=== PATIENT | male | born 2000 | race Caucasian/White ===

== ENCOUNTER → 2020-03-22 | Outpatient (CLI) | payer OTHER ==
[~2020-03-22] MED LIST: ADVIL; CEPH500 PO; ERYT.5TO OS; SULTRIEL PO; SULTRISS PO; TRIA80TC TOP
== END ==
LOC: PLD 17:08 → LAB SHORT 17:08
DX: J02.9 Acute pharyngitis, unspecified (principal)
CPT/HCPCS: 87081

== ENCOUNTER 2023-03-11 07:25 | Emergency (ER) | payer OTHER ==
[~2023-03-11] VITALS: Ht 182.9 cm; Wt 75.0 kg
[2023-03-11 07:37] VITALS: BP 137/90
[2023-03-11] MEDS ORDERED: Ventolin/Prove6.7 GM (07:43)
[2023-03-11] MEDS ORDERED: FLUTICASONE P10.6 GM (07:43)
[2023-03-11] MEDS ORDERED: FAMO20 (07:43)
== END 2023-03-11 10:03 | disposition home or self-care (01) ==
LOC: ER 07:25
DX: M25.522 Pain in left elbow (principal); Z91.018 Allergy to other foods; Z79.899 Other long term (current) drug therapy; K21.9 Gastro-esophageal reflux disease without esophagitis
CPT/HCPCS: 73080; 99283-25

== ENCOUNTER → 2024-02-14 | Outpatient (CLI) | payer OTHER ==
[~2024-02-14] MED LIST changes: +FAMO20; +FLUTICASONE P10.6 GM; +Ventolin/Prove6.7 GM
[2024-02-14 15:33] LABS: Alanine Aminotransfer (ALT/SGP 49 U/L (12-78); Albumin, Blood 4.2 g/dL (3.4-5.0); Albumin/Globulin Ratio 1.3 (0.8-1.8); Alk Phos 62 U/L (50-136); Anion Gap 8 mmol/L (3-11); Aspartate Aminotrans (AST/SGOT 34 U/L (12-37); Bilirubin, Total 0.6 mg/dL (0.1-1.0); Blood Urea Nitrogen 11 mg/dL (8-24); Bun/Creatinine Ratio 10.4 (12.0-20.0); CHOL/HDL RATIO 2.6; CO2, Blood 30 mmol/L (21-32); Calcium, Blood 9.4 mg/dL (8.5-10.1); Chloride, Blood 104 mmol/L (98-108); Cholesterol 187 mg/dL (50-200); Creatinine, Blood 1.06 mg/dL (0.60-1.20); Globulin, Blood 3.3 g/dL (2.2-4.0); Glomerular Filtration Rate 101 (60-); Glucose, Blood 98 mg/dL (70-99); HDL Cholesterol 73 mg/dL (>39); LDL/HDL RATIO 1.3; Low Density Lipoprotein Chol 96 mg/dL (0-110); Potassium, Blood 3.5 mmol/L (3.5-5.5); Sodium, Blood 138 mmol/L (136-145); Total Protein, Blood 7.5 g/dL (6.4-8.2); Triglycerides 90 mg/dL (30-140); Very Low Density Lipoprot Chol 18 mg/dL (6-28)
== END ==
LOC: LAB 12:00 → LAB SHORT 12:00
PROVIDERS: Physician Assistant
DX: Z51.81 Encounter for therapeutic drug level monitoring (principal); Z79.899 Other long term (current) drug therapy
CPT/HCPCS: 80053; 80061; 82306; 84443

== ENCOUNTER → 2024-10-19 | Outpatient (CLI) | payer OTHER ==
[2024-10-19 15:35] LABS: Hematocrit 44.1 % (37.0-53.0); Hemoglobin 15.2 g/dL (13.5-17.5); Mean Corpuscular HGB Conc 34.5 g/dL (31.5-36.5); Mean Corpuscular Volume 85 fL (80-100); NRBC ABSOLUTE 0.00 K/mm3 (0.00-0.02); NRBC Auto 0.0 /100 WBC (0.0-0.2); Platelet Count 263 K/mm3 (150-400); RDW Coefficient Variation 11.9 % (11.7-14.2); RDW Standard Deviation 36.5 fL (35.1-46.3)
[2024-10-19 16:16] LABS: Alanine Aminotransfer (ALT/SGP 38.0 U/L (12-78); Albumin, Blood 4.5 g/dL (3.4-5.0); Albumin/Globulin Ratio 1.2 (0.8-1.8); Anion Gap 6.0 mmol/L (3-11); Aspartate Aminotrans (AST/SGOT 25.0 U/L (12-37); Bilirubin, Total 0.7 mg/dL (0.1-1.0); Blood Urea Nitrogen 7.0 mg/dL (8-24); CO2, Blood 30.0 mmol/L (21-32); Calcium, Blood 9.4 mg/dL (8.5-10.1); Chloride, Blood 103.0 mmol/L (98-108); Creatinine, Blood 1.16 mg/dL (0.60-1.20); Globulin, Blood 3.7 g/dL (2.2-4.0); Glucose, Blood 92.0 mg/dL (70-99); Potassium, Blood 3.7 mmol/L (3.5-5.5); Sodium, Blood 135.0 mmol/L (136-145); Total Protein, Blood 8.2 g/dL (6.4-8.2)
== END ==
LOC: LAB SHORT 15:05 → LAB 15:05
PROVIDERS: Physician Assistant
DX: R59.0 Localized enlarged lymph nodes (principal)
CPT/HCPCS: 80053; 85027

== ENCOUNTER 2024-12-04 03:38 | Emergency (ER) | payer OTHER ==
[~2024-12-04] VITALS: Ht 185.4 cm; Wt 68.0 kg
[2024-12-04 04:59] LABS: Source, Urine Clean Catch
[2024-12-04 05:02] LABS: Bilirubin, Urine Neg (Neg); Glucose Qualitative, Urine Neg (Neg); Ketones, Urine Neg (Neg); Leukocyte Esterase, Urine Neg (Neg); Protein, Urine Neg (Neg); Specific Gravity, Urine 1.005 (1.003-1.022); Urobilinogen, Urine NORM (Normal)
[2024-12-04 05:07] LABS: Color, Urine Pale Yellow (P-Yellow)
[2024-12-04] MEDS ORDERED: NS 1,000 ML IV SCH (05:10)
[2024-12-04 05:13] LABS: BASOPHILS ABSOLUTE AUTO 0.03 K/mm3 (0.00-0.23); BASOPHILS PERCENT AUTO 0 % (0-2); EOSINOPHILS ABSOLUTE AUTO 0.30 K/mm3 (0.00-0.68); EOSINOPHILS PERCENT AUTO 4 % (0-6); Hematocrit 39.9 % (37.0-53.0); Hemoglobin 13.8 g/dL (13.5-17.5); IMMATURE GRAN ABSOLUTE AUTO 0.03 K/mm3 (0.00-0.10); IMMATURE GRAN PERCENT AUTO 0 % (0-1); LYMPHOCYTES ABSOLUTE AUTO 1.65 K/mm3 (0.84-5.20); LYMPHOCYTES PERCENT AUTO 20 % (21-46); MONOCYTES ABSOLUTE AUTO 0.45 K/mm3 (0.16-1.47); MONOCYTES PERCENT AUTO 6 % (4-13); Mean Corpuscular HGB Conc 34.6 g/dL (31.5-36.5); Mean Corpuscular Volume 84 fL (80-100); NEUTROPHILS ABSOLUTE AUTO 5.76 K/mm3 (1.96-9.15); NEUTROPHILS PERCENT AUTO 70 % (41-73); NRBC ABSOLUTE 0.00 K/mm3 (0.00-0.02); NRBC Auto 0.0 /100 WBC (0.0-0.2); Platelet Count 222 K/mm3 (150-400); RDW Coefficient Variation 11.7 % (11.7-14.2); RDW Standard Deviation 35.5 fL (35.1-46.3)
[2024-12-04] MEDS ORDERED: LORazepam 2 MG/ML 1ML Injection IV ONE (05:20)
[2024-12-04] MEDS ORDERED: ONDA4 PO (05:31)
[2024-12-04] MEDS ORDERED: DICY20 PO (05:31)
[2024-12-04 05:32] LABS: Alanine Aminotransfer (ALT/SGP 320.0 U/L (12-78); Albumin, Blood 4.4 g/dL (3.4-5.0); Albumin/Globulin Ratio 1.4 (0.8-1.8); Anion Gap 10.0 mmol/L (3-11); Aspartate Aminotrans (AST/SGOT 207.0 U/L (12-37); Bilirubin, Total 0.7 mg/dL (0.1-1.0); Blood Urea Nitrogen 6.0 mg/dL (8-24); CO2, Blood 27.0 mmol/L (21-32); Calcium, Blood 8.6 mg/dL (8.5-10.1); Chloride, Blood 92.0 mmol/L (98-108); Creatinine, Blood 0.87 mg/dL (0.60-1.20); Globulin, Blood 3.2 g/dL (2.2-4.0); Glucose, Blood 105.0 mg/dL (70-99); Magnesium, Blood 1.7 mg/dL (1.6-2.4); Potassium, Blood 3.2 mmol/L (3.5-5.5); Sodium, Blood 126.0 mmol/L (136-145); Total Protein, Blood 7.6 g/dL (6.4-8.2)
[2024-12-04 05:45] VITALS: BP 127/72
== END 2024-12-04 06:11 | disposition home or self-care (01) ==
LOC: ER 03:38
PROVIDERS: Emergency Medicine
DX: R10.32 Left lower quadrant pain (principal); R74.01 Elevation of levels of liver transaminase levels; K21.9 Gastro-esophageal reflux disease without esophagitis; Z91.018 Allergy to other foods; Z79.899 Other long term (current) drug therapy
CPT/HCPCS: 71045; 80053; 81003; 83690; 83735; 85025; 93005; 93010; 96361; 96374; 99284-25; J2060; J7030

== ENCOUNTER 2024-12-05 10:27 | Emergency (ER) | payer OTHER ==
[~2024-12-05] VITALS: Ht 182.9 cm; Wt 68.0 kg
[~2024-12-05 10:27] MED LIST changes: +DICY20 PO; +ONDA4 PO
[2024-12-05 11:54] LABS: BASOPHILS ABSOLUTE AUTO 0.03 K/mm3 (0.00-0.23); BASOPHILS PERCENT AUTO 1 % (0-2); EOSINOPHILS ABSOLUTE AUTO 0.12 K/mm3 (0.00-0.68); EOSINOPHILS PERCENT AUTO 2 % (0-6); Hematocrit 37.3 % (37.0-53.0); Hemoglobin 13.5 g/dL (13.5-17.5); IMMATURE GRAN ABSOLUTE AUTO 0.00 K/mm3 (0.00-0.10); IMMATURE GRAN PERCENT AUTO 0 % (0-1); LYMPHOCYTES ABSOLUTE AUTO 1.47 K/mm3 (0.84-5.20); LYMPHOCYTES PERCENT AUTO 28 % (21-46); MONOCYTES ABSOLUTE AUTO 0.32 K/mm3 (0.16-1.47); MONOCYTES PERCENT AUTO 6 % (4-13); Mean Corpuscular HGB Conc 36.2 g/dL (31.5-36.5); Mean Corpuscular Volume 83 fL (80-100); NEUTROPHILS ABSOLUTE AUTO 3.27 K/mm3 (1.96-9.15); NEUTROPHILS PERCENT AUTO 63 % (41-73); NRBC ABSOLUTE 0.00 K/mm3 (0.00-0.02); NRBC Auto 0.0 /100 WBC (0.0-0.2); Platelet Count 212 K/mm3 (150-400); RDW Coefficient Variation 11.4 % (11.7-14.2); RDW Standard Deviation 34.4 fL (35.1-46.3)
[2024-12-05 12:18] LABS: Alanine Aminotransfer (ALT/SGP 183.0 U/L (12-78); Albumin, Blood 4.2 g/dL (3.4-5.0); Albumin/Globulin Ratio 1.3 (0.8-1.8); Anion Gap 9.0 mmol/L (3-11); Aspartate Aminotrans (AST/SGOT 75.0 U/L (12-37); Bilirubin, Total 0.8 mg/dL (0.1-1.0); Blood Urea Nitrogen 7.0 mg/dL (8-24); CO2, Blood 24.0 mmol/L (21-32); Calcium, Blood 8.7 mg/dL (8.5-10.1); Chloride, Blood 99.0 mmol/L (98-108); Creatinine, Blood 0.81 mg/dL (0.60-1.20); Globulin, Blood 3.2 g/dL (2.2-4.0); Glucose, Blood 99.0 mg/dL (70-99); Potassium, Blood 3.2 mmol/L (3.5-5.5); Sodium, Blood 129.0 mmol/L (136-145); Total Protein, Blood 7.4 g/dL (6.4-8.2)
[2024-12-05] MEDS ORDERED: NS 1,000 ML IV SCH (13:15)
[2024-12-05 14:51] VITALS: BP 118/65
[2024-12-07] MEDS ORDERED: ONDA4ODT MM (09:11)
[2024-12-07] MEDS ORDERED: FAMO20 PO (09:11)
== END 2024-12-05 14:51 | disposition home or self-care (01) ==
LOC: ER 10:27
PROVIDERS: Emergency Medicine
DX: E86.0 Dehydration (principal); E87.1 Hypo-osmolality and hyponatremia; E87.6 Hypokalemia; J45.909 Unspecified asthma, uncomplicated; K21.9 Gastro-esophageal reflux disease without esophagitis; Z91.018 Allergy to other foods; Z79.899 Other long term (current) drug therapy
CPT/HCPCS: 71045; 80053; 84484; 85025; 93005; 93010; 96360; 99285-25; A9270; J7030

== ENCOUNTER → 2024-12-06 | Outpatient (CLI) | payer OTHER ==
[~2024-12-06] MED LIST changes: +ALBU90OI INH; +FAMO20 PO; +ONDA4ODT MM
[2024-12-06 16:16] LABS: BASOPHILS ABSOLUTE AUTO 0.03 K/mm3 (0.00-0.23); BASOPHILS PERCENT AUTO 1 % (0-2); EOSINOPHILS ABSOLUTE AUTO 0.28 K/mm3 (0.00-0.68); EOSINOPHILS PERCENT AUTO 6 % (0-6); Hematocrit 42.7 % (37.0-53.0); Hemoglobin 15.2 g/dL (13.5-17.5); IMMATURE GRAN ABSOLUTE AUTO 0.00 K/mm3 (0.00-0.10); IMMATURE GRAN PERCENT AUTO 0 % (0-1); LYMPHOCYTES ABSOLUTE AUTO 1.71 K/mm3 (0.84-5.20); LYMPHOCYTES PERCENT AUTO 38 % (21-46); MONOCYTES ABSOLUTE AUTO 0.28 K/mm3 (0.16-1.47); MONOCYTES PERCENT AUTO 6 % (4-13); Mean Corpuscular HGB Conc 35.6 g/dL (31.5-36.5); Mean Corpuscular Volume 85 fL (80-100); NEUTROPHILS ABSOLUTE AUTO 2.19 K/mm3 (1.96-9.15); NEUTROPHILS PERCENT AUTO 49 % (41-73); NRBC ABSOLUTE 0.00 K/mm3 (0.00-0.02); NRBC Auto 0.0 /100 WBC (0.0-0.2); Platelet Count 248 K/mm3 (150-400); RDW Coefficient Variation 12.0 % (11.7-14.2); RDW Standard Deviation 37.3 fL (35.1-46.3)
[2024-12-06 16:46] LABS: Alanine Aminotransfer (ALT/SGP 181.0 U/L (12-78); Albumin, Blood 4.9 g/dL (3.4-5.0); Albumin/Globulin Ratio 1.3 (0.8-1.8); Anion Gap 8.0 mmol/L (3-11); Aspartate Aminotrans (AST/SGOT 65.0 U/L (12-37); Bilirubin, Total 0.8 mg/dL (0.1-1.0); Blood Urea Nitrogen 9.0 mg/dL (8-24); CO2, Blood 29.0 mmol/L (21-32); Calcium, Blood 10.0 mg/dL (8.5-10.1); Chloride, Blood 104.0 mmol/L (98-108); Creatinine, Blood 0.78 mg/dL (0.60-1.20); Globulin, Blood 3.7 g/dL (2.2-4.0); Glucose, Blood 104.0 mg/dL (70-99); Potassium, Blood 3.7 mmol/L (3.5-5.5); Sodium, Blood 137.0 mmol/L (136-145); Total Protein, Blood 8.6 g/dL (6.4-8.2)
[2024-12-08 07:33] LABS: HIV 1,2 COMBO ANTIGEN/ANTIBODY Negative (Negative)
[2024-12-08 07:59] LABS: HEPATITIS A ANTIBODY, IGM Negative (Negative); HEPATITIS C AB CIA INTERP Negative (Negative); HEPATITIS C ANTIBODY CIA INDEX 0.09 IV
== END ==
LOC: LAB 14:58 → LAB SHORT 14:58
PROVIDERS: Physician Assistant
DX: R79.89 Other specified abnormal findings of blood chemistry (principal); R63.1 Polydipsia; Z79.899 Other long term (current) drug therapy
CPT/HCPCS: 80053; 80074; 83036; 85025; 87389

== ENCOUNTER 2024-12-10 03:00 | Observation (INO) | payer OTHER ==
[~2024-12-10] VITALS: Ht 182.9 cm; Wt 71.4 kg
[~2024-12-10 03:00] MED LIST changes: -ALBU90OI INH
[2024-12-10 07:48] LABS: BASOPHILS ABSOLUTE AUTO 0.03 K/mm3 (0.00-0.23); BASOPHILS PERCENT AUTO 1 % (0-2); EOSINOPHILS ABSOLUTE AUTO 0.19 K/mm3 (0.00-0.68); EOSINOPHILS PERCENT AUTO 3 % (0-6); Hematocrit 34.9 % (37.0-53.0); Hemoglobin 13.0 g/dL (13.5-17.5); IMMATURE GRAN ABSOLUTE AUTO 0.01 K/mm3 (0.00-0.10); IMMATURE GRAN PERCENT AUTO 0 % (0-1); LYMPHOCYTES ABSOLUTE AUTO 1.86 K/mm3 (0.84-5.20); LYMPHOCYTES PERCENT AUTO 33 % (21-46); MONOCYTES ABSOLUTE AUTO 0.35 K/mm3 (0.16-1.47); MONOCYTES PERCENT AUTO 6 % (4-13); Mean Corpuscular HGB Conc 37.2 g/dL (31.5-36.5); Mean Corpuscular Volume 80 fL (80-100); NEUTROPHILS ABSOLUTE AUTO 3.23 K/mm3 (1.96-9.15); NEUTROPHILS PERCENT AUTO 57 % (41-73); NRBC ABSOLUTE 0.00 K/mm3 (0.00-0.02); NRBC Auto 0.0 /100 WBC (0.0-0.2); Platelet Count 232 K/mm3 (150-400); RDW Coefficient Variation 11.3 % (11.7-14.2); RDW Standard Deviation 33.0 fL (35.1-46.3)
[2024-12-10 08:10] LABS: Alanine Aminotransfer (ALT/SGP 67.0 U/L (12-78); Albumin, Blood 4.2 g/dL (3.4-5.0); Albumin/Globulin Ratio 1.4 (0.8-1.8); Anion Gap 10.0 mmol/L (3-11); Aspartate Aminotrans (AST/SGOT 19.0 U/L (12-37); Bilirubin, Direct 0.3 mg/dL (0.0-0.3); Bilirubin, Indirect 0.9 mg/dL (0.1-0.7); Bilirubin, Total 1.2 mg/dL (0.1-1.0); Blood Urea Nitrogen 7.0 mg/dL (8-24); CO2, Blood 25.0 mmol/L (21-32); Calcium, Blood 8.7 mg/dL (8.5-10.1); Chloride, Blood 90.0 mmol/L (98-108); Creatinine, Blood 0.77 mg/dL (0.60-1.20); Globulin, Blood 3.0 g/dL (2.2-4.0); Glucose, Blood 88.0 mg/dL (70-99); Magnesium, Blood 1.8 mg/dL (1.6-2.4); Potassium, Blood 3.1 mmol/L (3.5-5.5); Sodium, Blood 122.0 mmol/L (136-145); Total Protein, Blood 7.2 g/dL (6.4-8.2)
[2024-12-10] MEDS ORDERED: NS 1,000 ML IV SCH (08:50)
[2024-12-10] MEDS ORDERED: Albuterol 2.5 MG/3 ML VIAL INH PRN (10:05)
[2024-12-10] MEDS ORDERED: Ondansetron 4 MG SoluTab MM PRN (10:05)
[2024-12-10 11:13] LABS: Osmolality, Serum 260.0 mos/KG (275-300)
[2024-12-10 11:35] LABS: Thyroid Stimulating Hormone 1.14 uIU/mL (0.360-4.800)
[2024-12-10 14:30] VITALS: BP 130/80
[2024-12-10] MEDS ORDERED: ALBU90OI INH (14:32)
--- NOTE | 2024-12-10 15:43 | NUR ---
PRN ATIVAN FOR PRE MRI, SHOWING IN EMAR TO BE GIVEN NOW. RESCHEDULED FOR TOMORROW. ASKED PHA TO ASSIST TO REORDER
--- NOTE | 2024-12-10 18:31 | NUR ---
PT PLEASANT SINCE ADMIT THIS AFT. HE VERBALIZED UNDERSTANDING FREE WATER RESTRICTION. LISTED ON BOARD AND ON DOORPOST. 1500 CC PER DAY. REQUESTED HE HAVE [facility] OR FAMILY COME TAKE HIS HOME MEDS BACK HOME. LOCKED IN DRAWER UNTIL THEY HERE. ADMIT DONE. PT AMBULATING TO BATHROOM NEEDED. NO FURTHER NEW CONCERNS NOTED. BED IN LOW POSITION, CALLLITE IN REACH, CALLS APPROP
--- NOTE | 2024-12-11 06:31 | NUR ---
Shift Summary: Pt A/Ox4, pleasant, and independent. Unmeasurable amount of urine voided at the beginning of the shift. VSS. Pt scheduled for MRI later on today- notified by imaging that tech will be in room around 1000. MRI screening form already completed.
[2024-12-11 06:52] VITALS: BP 117/79
[2024-12-11 07:35] VITALS: BP 111/73
[2024-12-11 08:21] LABS: Alanine Aminotransfer (ALT/SGP 55.0 U/L (12-78); Albumin, Blood 4.0 g/dL (3.4-5.0); Albumin/Globulin Ratio 1.3 (0.8-1.8); Anion Gap 7.0 mmol/L (3-11); Aspartate Aminotrans (AST/SGOT 17.0 U/L (12-37); Bilirubin, Total 0.7 mg/dL (0.1-1.0); Blood Urea Nitrogen 12.0 mg/dL (8-24); CO2, Blood 27.0 mmol/L (21-32); Calcium, Blood 8.8 mg/dL (8.5-10.1); Chloride, Blood 106.0 mmol/L (98-108); Creatinine, Blood 0.98 mg/dL (0.60-1.20); Globulin, Blood 3.1 g/dL (2.2-4.0); Glucose, Blood 89.0 mg/dL (70-99); Potassium, Blood 4.4 mmol/L (3.5-5.5); Sodium, Blood 136.0 mmol/L (136-145); Total Protein, Blood 7.1 g/dL (6.4-8.2)
[2024-12-11 15:46] VITALS: BP 113/70
--- NOTE | 2024-12-11 17:13 | NUR ---
SHIFT SUMMARY NO ACUTE CHANGES, A/Ox4, ABLE TO MAKE NEEDS KNOWN AND USE CALL SYSTEM APPROPRIATELY. INDEPENDENT IN ROOM. 1500 FREE FLUID RESTRICTION. IV FLUIDS DC'D. NPO AT MIDNIGHT FOR DESMOPRESSIN CHALLENGE. MRI COMPLETED DURING SHIFT. PT CURRENTLY RESTING IN BED WITH BED IN LOWEST POSITION AND CALL LIGHT WITHIN REACH. STRICT I/O ORDER STARTED - HAT AND URINAL PLACED IN PT RESTROOM AND PT EDUCATED RE STRICT I/O AND NPO STATUS.
[2024-12-11 19:51] VITALS: BP 109/73
[2024-12-12 00:46] LABS: Sodium, Blood 135 mmol/L (136-145)
[2024-12-12 00:54] LABS: Osmolality, Serum 288 mos/KG (275-300)
--- NOTE | 2024-12-12 04:18 | NUR ---
PT A&OX4, INDEPENDENT IN RM. URINE SAMPLES COLLECTED ORDERED. PT WAS ANXIOUS ABOT NOT BEING ABLE TO DRINK WATER. PT SLEPT T/O THE SHIFT.
[2024-12-12 04:41] VITALS: BP 97/68
[2024-12-12 05:09] LABS: Osmolality, Serum 292 mos/KG (275-300)
[2024-12-12 05:15] LABS: Sodium, Blood 136 mmol/L (136-145)
[2024-12-12 07:38] VITALS: BP 91/49
--- NOTE | 2024-12-12 08:29 | NUR ---
PROVIDER NOTIFY PT UNABLE TO PROVIDE URINE SAMPLE FOR 0800 AFTER ADMINISTRATION OF DVVAP. [place] NOTIFIED - PROVIDER WOULD LIKE AT LEAST TWO URINE SAMPLES BEFORE ALLOWING PT TO EAT OR DRINK. ONCE TWO URINE SAMPLES PROVIDED RN MAY PLACE REGULAR DIET ORDER. BLOOD SAMPLE AT 0800 OBTAINED.
[2024-12-12 08:36] LABS: Sodium, Blood 135 mmol/L (136-145)
[2024-12-12 09:14] LABS: Sodium, Blood 135 mmol/L (136-145)
[2024-12-12 09:30] LABS: ALDOSTERONE 36.4 ng/dL
[2024-12-12 10:21] LABS: Osmolality, Serum 296 mos/KG (275-300)
[2024-12-12 10:50] LABS: Sodium, Blood 138 mmol/L (136-145)
--- NOTE | 2024-12-12 12:34 | NUR ---
Pt. is awake in bed and welcomes my visit. P. is pleasant and sits up in his bed as I facilitate a life review. The Pt. verbalized that he no longer holds to his mother's J.W. aleks. Listen with curious interest and a calming presence. Pt. verbalized an expectation that he would be discharged home today. Prayed with the Pt. Pt. verbalized gratitude for the spiritual care visit.
[2024-12-12 12:55] LABS: Osmolality, Serum 289 mos/KG (275-300)
[2024-12-12 13:00] LABS: Osmolality, Serum 287 mos/KG (275-300)
--- NOTE | 2024-12-12 15:55 | NUR ---
DISCHARGE SUMMARY PT DISCHARGED HOME. NO NEW MEDICATIONS PRESCRIBED. IV REMOVED AND SITE APPEARS WNL. DISCHARGE INSTRUCTIONS REVIEWED WITH PT. EDUCATED PT ON HOW TO OBTAIN MEDICAL RECORDS. PT REQUESTED TO AMBULATE INDEPENDENTLY DOWN TO VEHICLE. PT REPORTS OBTAINING ALL BELONGINGS INCLUDING HEATING PAD AND HOME MEDICATIONS.
[2024-12-15 14:04] LABS: COPEPTIN, PLASMA 5.2 pmol/L (1.0-13.0)
== END 2024-12-12 15:50 | disposition home or self-care (01) ==
LOC: ER 03:00 → MEDS 03:01 → ENPENDDIS 12-12 15:06 → MEDS 12-12 15:50
PROVIDERS: Family Medicine; Student in an Organized Health Care Education/Training Program; ADMIT Internal Medicine
DX: R63.1 Polydipsia (principal); E87.1 Hypo-osmolality and hyponatremia; K21.9 Gastro-esophageal reflux disease without esophagitis; Z79.899 Other long term (current) drug therapy; Z91.018 Allergy to other foods
CPT/HCPCS: 36415; 70553; 80048; 80053; 80076; 82088; 82533; 83735; 83930; 83935; 84146; 84295; 84300; 84443; 84588; 85025; 93005; 93010; 94760; 96374; 99284-25; A9270; A9579; G0378; J2597; J3480; J7030; J7050